=== PATIENT | male | born 1955 | race Asian ===

== ENCOUNTER 2023-11-15 20:31 | Emergency (ER) | payer MEDICAID ==
[~2023-11-15] VITALS: Ht 157.5 cm; Wt 71.0 kg
[~2023-11-15 20:31] MED LIST: GLIP-127 PO; METF-900 PO; SYN0.1T PO
[2023-11-15 20:45] VITALS: TEMP 98.5
[2023-11-15] MEDS: LIDOcaine 1% W/epiNEPHrine 1:100,000 20ml vial SQ ONE (23:10)
[2023-11-15 23:14] VITALS: BP 115/82; PULSE 78; RESP 16; O2SAT 97
[2023-11-15] MEDS: TETanus/Pertussis (Acell)/Diphther VAC/PF (Tdap-Adult) 0.5ml syringe IMVAC ONE (23:23)
[2023-11-15] MEDS: bacitracin 15gm ointment TP ONE (23:25)
== END 2023-11-15 23:35 | disposition home or self-care (01) ==
LOC: ER 20:32
DX: S81.811A Laceration without foreign body, right lower leg, initial encounter (principal); E11.9 Type 2 diabetes mellitus without complications; E03.9 Hypothyroidism, unspecified; Z79.899 Other long term (current) drug therapy; Z98.890 Other specified postprocedural states; W45.8XXA Other foreign body or object entering through skin, initial encounter; Y93.89 Activity, other specified; Y92.89 Other specified places as the place of occurrence of the external cause; Y99.8 Other external cause status
CPT/HCPCS: 12002; 90471; 90715; 99283

== ENCOUNTER → 2023-11-20 | Outpatient (CLI) | payer MEDICAID | END | disposition home or self-care (01) | LOC: RAD 08:40 | PROVIDERS: ATTEND Nurse Practitioner | DX: R76.12 Nonspecific reaction to cell mediated immunity measurement of gamma interferon antigen response without active tuberculosis (principal) | CPT/HCPCS: 71046 ==

== ENCOUNTER 2023-11-22 17:21 | Emergency (ER) | payer MEDICAID ==
[~2023-11-22] VITALS: Ht 157.5 cm; Wt 71.8 kg
[2023-11-22 17:24] VITALS: BP 104/64; PULSE 91; O2SAT 97
[2023-11-22 18:32] VITALS: RESP 17; TEMP 98.2
== END 2023-11-22 18:23 | disposition home or self-care (01) ==
LOC: ER 17:22
DX: S81.811D Laceration without foreign body, right lower leg, subsequent encounter (principal); Z79.899 Other long term (current) drug therapy; Z79.2 Long term (current) use of antibiotics; X58.XXXD Exposure to other specified factors, subsequent encounter
CPT/HCPCS: 99281

== ENCOUNTER 2023-11-27 07:59 | Outpatient (CLI) | payer MEDICAID | END 2023-11-27 23:59 | disposition home or self-care (01) | LOC: RAD 07:59 | PROVIDERS: ATTEND Nurse Practitioner Family | DX: Z12.2 Encounter for screening for malignant neoplasm of respiratory organs (principal); J84.10 Pulmonary fibrosis, unspecified | CPT/HCPCS: 71271 ==

== ENCOUNTER 2024-01-09 08:34 | Outpatient (CLI) | payer MEDICAID | END 2024-01-09 23:59 | disposition home or self-care (01) | LOC: RAD 08:34 | PROVIDERS: ATTEND Internal Medicine Rheumatology | DX: S52.601A Unspecified fracture of lower end of right ulna, initial encounter for closed fracture (principal); M19.09 Primary osteoarthritis, other specified site; M19.031 Primary osteoarthritis, right wrist; M19.041 Primary osteoarthritis, right hand; M77.32 Calcaneal spur, left foot; M77.31 Calcaneal spur, right foot; M1A.09X0 Idiopathic chronic gout, multiple sites, without tophus (tophi); M06.9 Rheumatoid arthritis, unspecified; X58.XXXA Exposure to other specified factors, initial encounter; Y93.89 Activity, other specified; Y92.89 Other specified places as the place of occurrence of the external cause; Y99.8 Other external cause status | CPT/HCPCS: 73100; 73120; 73600; 73620 ==

== ENCOUNTER 2025-04-28 06:35 | Emergency (ER) | payer MEDICARE, MEDICAID ==
[~2025-04-28] VITALS: Ht 157.5 cm; Wt 71.9 kg
[2025-04-28 06:41] VITALS: TEMP 98
[2025-04-28] MEDS: normal saline 1000ML IV soln IVB ONE (07:04)
[2025-04-28] MEDS: insulin regular, human 10 units/0.1 ml syringe SQ ONE ×2 (07:09→08:28)
--- NOTE | 2025-04-28 07:10 | Physician Documentation ---
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 The patient denies any fevers or chills the patient's symptoms are moderate and persistent. Patient is continuing to take Trulicity which he was changed to when he was taken off insulin he has also continued to take metformin. Medication Reconciliation Allergies: Coded Allergies: No Known Allergies (Unverified , 02/17/10) Scheduled Empagliflozin (Jardiance), 1 TAB PO DAILY Glipizide (Glipizide), 10 MG PO PRN, (Reported) Insulin Glargine,Hum.rec.anlog (Basaglar Kwikpen U-100), 20 UNITS SUBCUT DAILY Levothyroxine Sodium* (Synthroid*), 150 MCG PO DAILY, (Reported) Metformin Hcl* (Metformin ER*), 1,000 MG PO DAILY, (Reported) Tirzepatide (Mounjaro), 0.5 ML SQ Q7D Past Medical History Past Medical History: Diabetes, Hypothyroidism, Gout, Depression Past Surgical History: appendectomy Smoking: Cigarettes Alcohol Use: Rarely Lives with: Family Physical Exam Physical Exam Vital Signs: Temperature: 98.0, Source: Oral, Heart Rate: 101, Respiratory Rate: 16, BP: 105/58, Pulse Oximetry: 96, Weight: 71.900 Oxygen Flow Rate: 0 Progress Results/Orders Results/Orders Completed Orders - OHLDEANN OSBORNE MD Cbc/Diff (04/28/25 06:51) Normal Saline 1000ml (0.9% Sodium Chlori (04/28/25 06:55) BMP (04/28/25 06:51) Insulin Regular, Human (Humulin R 10 Uni (04/28/25 06:55) Ua W/Microscopic, Cult If Ind (04/28/25 06:54) Normal Saline 1000ml (0.9% Sodium Chlori (04/28/25 08:05) Insulin Regular, Human (Humulin R 10 Uni (04/28/25 08:15) Insulin Regular, Human (Humulin R 10 Uni (04/28/25 08:15) Vital Signs 04/28/25 04/28/25 04/28/25 06:41 07:12 09:39 Temp 98.0 Pulse 101 94 92 Resp 16 16 16 B/P (MAP) 105/58 121/66 (84) 131/80 Pulse Ox 96 97 99 O2 Flow Rate 0 0 Laboratory Tests Test 04/28/25 06:45 04/28/25 06:54 04/28/25 07:05 04/28/25 08:00 Glucometer 392 H 378 H Urine Specimen Description Voided Urine Color Yellow Urine Clarity Clear Urine pH 5.5 Urine Specific [place] 1.020 Urine Protein 30 H Urine Glucose (UA) >=1000 H Urine Ketones Trace H Urine Occult Blood Negative Urine Nitrite Negative Urine Bilirubin Negative Urine Urobilinogen 0.2 Urine Leukocyte Esterase Negative Urine RBC None seen Urine WBC 0-4 Urine Squamous Epithelial Cells Few Urine Bacteria Few Urine Hyaline Casts 3-5 Urine Fine Granular Casts 0-3 Urine Yeast Few Urine Culture Indicated Not ind Volume Urine Centrifuged 10 ml Urine Comment White Blood Count 5.4 Red Blood Count 3.79 L Hemoglobin 12.2 L Hematocrit 35.4 L Mean Corpuscular Volume 93.6 Mean Corpuscular Hemoglobin 32.2 H Mean Corpuscular Hemoglobin Concent 34.5 Red Cell Distribution Width 14.0 Platelet Count 196 Mean Platelet Volume 9.5 Neutrophils (%) (Auto) 33.9 L Lymphocytes (%) (Auto) 38.0 Monocytes (%) (Auto) 10.0 Eosinophils (%) (Auto) 17.5 H Basophils (%) (Auto) 0.6 Neutrophils # (Auto) 1.8 Lymphocytes # (Auto) 2.1 Monocytes # (Auto) 0.5 Eosinophils # (Auto) 0.9 Basophils # (Auto) 0.0 CBC Comment Sodium Level 131 L Potassium Level 4.6 Chloride Level 97 L Carbon Dioxide Level 21.5 L Anion Gap 13 Blood Urea Nitrogen 21 H Creatinine 1.38 H Estimated GFR/1.73 m2 51 BUN/Creatinine Ratio 15.2 Glucose Level 412 *H Calcium Level 8.3 L Albumin 3.4 Chemistry Comments Test 04/28/25 09:07 Glucometer 397 H Medical Decision Making Additional information obtaine: old records Findings The patient is a 69-year-old male with type 2 diabetes he has had significant difficulty controlling his blood sugar he was given insulin and fluids here in the emergency room with very limited improvement in his blood sugar the patient is hemodynamically stable in no acute distress the patient's labs were reviewed. The patient's medication will be modified we are going to increase change his medication to Mounjaro and DC his Trulicity as well as start Jardiance and increase his insulin he has been advised to follow up with a his primary provider I have told him to increase his Basaglar dose to 20 units in the morning, at this point there was no evidence of acute infection in his pulse oximetry was interpreted as normal and adequate in his threat monitoring analyst was interpreted as a sinus rhythm prior hospitalizations were reviewed and Differential Diagnosis v Departure Impression: Primary Impression: Hyperglycemia Discharge Instructions: Hyperglycemia, [id number] Additional Instructions: Increase your Basaglar 20 units in the morning, stopped taking the Trulicity, take the Mounjaro and start the Jardiance and follow up with your primary care providers soon as possible Referrals: NO PRIMARY CARE PROVIDER (PCP) Prescriptions Empagliflozin (Jardiance) 10 Mg Tablet 1 TAB PO DAILY for 30 Days, #30 TAB 0 Refills Prov: DEANN MCKEON MD 04/28/25 Insulin Glargine,Hum.rec.anlog (Basaglar Kwikpen U-100) 100 Unit/Ml (3 Ml) Insuln.pen 20 UNITS SUBCUT DAILY, #4 UNIT Prov: DEANN MCKEON MD 04/28/25 Tirzepatide (Mounjaro) 7.5 Mg/0.5 Ml Pen.injctr 0.5 ML SQ Q7D, #4 UNIT Prov: DEANN MCKEON MD 04/28/25 Signature Scribe Signature: no scribe Attestation: The note accurately reflects work and decisions made by me.Deann Mckeon MD 04/29/25 06:58 DEANN MCKEON MD Apr 28, 2025 07:10
[2025-04-28 07:44] LABS: MEAN PLATELET VOLUME 9.5 FL (7.4-10.4); RED CELL DISTRIBUTION WIDTH 14.0 % (11.5-14.5)
[2025-04-28 07:47] LABS: LEUKOCYTE ESTERASE ,URINE NEGATIVE (Neg); NITRITES, URINE NEGATIVE (Neg); OCCULT BLOOD,URINE NEGATIVE (Neg)
[2025-04-28 07:53] LABS: UA COLLECTION TYPE VOIDED
[2025-04-28 07:55] LABS: SQUAMOUS EPITHELIAL CELL,UR FEW /LPF (FEW)
[2025-04-28 07:56] LABS: FINE GRANULAR CAST 0-3 /LPF (NEGATIVE); YEAST FEW /HPF (NEGATIVE)
[2025-04-28 07:56] LABS: CREATININE 1.38 MG/DL (0.60-1.10); TOTAL CARBON DIOXIDE 21.5 MMOL/L (24-32); eCRCL 40 ML/MIN; eGFR 51 ML/MIN
[2025-04-28] MEDS: normal saline 1000ml 1,000 ML IV ONE (08:11)
[2025-04-28] MEDS: insulin regular, human 10 units/0.1 ml syringe IV ONE (08:26)
[2025-04-28] MEDS ORDERED: TIRZ7.5P SQ (09:20)
[2025-04-28] MEDS ORDERED: EMPA10TA PO (09:25)
[2025-04-28] MEDS ORDERED: INSU100I31 SUBCUT (09:25)
[2025-04-28 09:39] VITALS: BP 131/80; PULSE 92; RESP 16; O2SAT 99
== END 2025-04-28 09:46 | disposition home or self-care (01) ==
LOC: ER 06:35
DX: E11.65 Type 2 diabetes mellitus with hyperglycemia (principal); E03.9 Hypothyroidism, unspecified; F32.A Depression, unspecified; F17.210 Nicotine dependence, cigarettes, uncomplicated; Z90.49 Acquired absence of other specified parts of digestive tract
CPT/HCPCS: 36415; 80048; 81001; 82948; 85025; 96361; 96374; 99284; J1815; J7030; 96372